=== PATIENT | female | born 1990 | race Caucasian/White ===

== ENCOUNTER 2017-10-26 18:11 | Emergency (ER) | payer MEDICAID ==
[2017-10-26] MEDS ORDERED: KETOROLAC TROMETHAMINE INJ/PF 30 MG/1 ML SDV IV ONE (20:10)
--- NOTE | 2017-10-26 20:13 | ER Document Report ---
ED Oral Problem - General Chief Complaint: Pain Stated Complaint: TOOTH ACHE Time Seen by Provider: 10/26/17 19:05 Mode of Arrival: Ambulatory Information source: Patient TRAVEL OUTSIDE OF THE [place] IN LAST 30 DAYS: No - HPI Patient complains to provider of: Toothache Severity: Moderate Notes: The patient is here with complaints of right lower dental pain as well as neck pain. Patient states that she was seen by her dentist approximately 5 days ago and was told she had a small dental abscess. She was placed on clindamycin. She states that her pain is progressively getting worse. She now has pain from her right ear down to the right side of her neck. Pain is worse with movement and chewing. She denies fevers. She denies nausea, vomiting, diarrhea. No difficulty breathing or swallowing. No chest pain or shortness of breath. She denies any neck stiffness. No rash. She has no other complaints at this time. - Related Data Allergies/Adverse Reactions: Penicillins Allergy (Mild, Verified 10/26/17 18:12) Hives Past Medical History - Social History Smoking Status: Unknown if Ever Smoked Family History: Reviewed & Not Pertinent. denies: CAD Patient has suicidal ideation: No Patient has homicidal ideation: No Renal/ Medical History: Denies: Hx Peritoneal Dialysis Psychiatric Medical History: Reports: Hx Anxiety - Immunizations Hx Diphtheria, Pertussis, Tetanus Vaccination: No Review of Systems - Review of Systems -: Yes All other systems reviewed and negative Physical Exam - Vital signs Vitals: Temp Pulse Resp BP Pulse Ox 98.7 F 91 16 145/88 H 100 10/26/17 18:16 10/26/17 18:16 10/26/17 18:16 10/26/17 18:16 10/26/17 18:16 - Notes Notes: GENERAL: alert, cooperative, nontoxic, no distress. HEAD: normocephalic, atraumatic EYES: conjunctiva pink without discharge, no external redness or swelling. EARS: no external swelling, no external redness. Ear canals are clear with no swelling. TMs pearly gordon bilaterally with no perforation or erythema. Mastoid with no tenderness or erythema. NOSE: atraumatic, no external swelling MOUTH/THROAT: mucous membranes moist and pink. No obvious dental abscess noted. No swelling. No sublingual swelling or induration. No sign of Ravi' s angina. NECK: soft, supple, full range of motion, no meningismus. Tenderness to palpation of the right jaw, submandibular area and right lateral neck. No swelling identified. CHEST: no distress, lungs clear and equal throughout. No wheezing, rales, rhonchi. CARDIAC: regular rate and rhythm, no murmur, normal capillary refill, normal pulses. BACK: full range of motion, no CVA tenderness. EXTREMITIES: full range of motion of all extremities. No redness, no swelling. NEURO: alert and oriented 3, no focal deficits, full range of motion of all extremities. PYSCH: appropriate mood, affect. Patient is cooperative. SKIN: pink, warm, dry, no rash. Course - Re-evaluation Re-evalutation: 10/26/17 21:20 The patient is nontoxic appearing stable vitals. She is here with complaints of right jaw pain. She was seen by her dentist a few days ago was placed on clindamycin but continues to have worsening pain. No swelling. No difficulty breathing or swallowing. She is a benign exam. She has no sign of Ravi's angina. She is afebrile. Ear and throat exam are unremarkable. Lab work is all unremarkable. CT of the soft tissues of the neck show no acute abnormalities. The patient will be discharged home with instructions to continue taking her clindamycin. Continue taking ibuprofen 800 mg every 8 hours. I will prescribe her some stronger pain medication she can take and that she can get in to see her dentist to see if they can figure out why she is having worsening pain. She is instructed to follow-up sooner if she develops worsening pain, high fever, difficulty breathing or swallowing, significant facial swelling, or for any further concerns. The patient's emergency department workup and current diagnosis were explained to the patient and or family. Follow-up instructions were provided. Medications if prescribed were discussed. Instructions for when to return to the emergency department including specific worrisome symptoms were discussed with the patient and/or family. The patient is noted to have elevated blood pressure during today's emergency department visit. The patient was informed of this finding. The patient was instructed that this may be related to pre-hypertension and requires further evaluation with a primary care provider. The patient has no hypertensive symptoms at this time. - Vital Signs Vital signs: Temp Pulse Resp BP Pulse Ox 98.7 F 91 16 145/88 H 100 10/26/17 18:16 10/26/17 18:16 10/26/17 18:16 10/26/17 18:16 10/26/17 18:16 - Laboratory Result Diagrams: 10/26/17 20:24 10/26/17 20:24 - Diagnostic Test Radiology reviewed: Image reviewed, Reports reviewed - Soft tissue neck with IV contrast shows no acute abnormality. Discharge - Discharge Clinical Impression: Pain in lower jaw Condition: Stable Disposition: HOME, SELF-CARE Instructions: Dentist, Dental Infection or Abscess ([facility]) Additional Instructions: Take medications as prescribed. Continue taking her antibiotics. Take ibuprofen 800 mg every 8 hours as needed for pain. Follow-up with your dentist at the next available appointment for recheck. Follow-up sooner for worsening pain, high fever, significant swelling, difficulty breathing or swallowing, or for any further concerns. Your blood pressure was elevated during today's visit. Have this rechecked with your doctor. The medication you were prescribed today may cause drowsiness. Do not drive or operate heavy machinery while taking this medication. Prescriptions: Hydrocodone/Acetaminophen [[place] 5-325 mg Tablet] 2 tab PO Q6H PRN #15 tab PRN Reason: Forms: Elevated Blood Pressure, Smoking Cessation Education Referrals: CHARLES ALEX DO [Primary Care Provider] - Follow up as needed
[2017-10-26 20:36] LABS: ABSOLUTE EOSINOPHILS # (AUTO) 0.2 10^3/uL (0.0-0.6); ABSOLUTE LYMPHOCYTES (AUTO) 2.7 10^3/uL (0.5-4.7); ABSOLUTE MONOCYTES (AUTO) 0.7 10^3/uL (0.1-1.4); ABSOLUTE NEUT (AUTO) 5.8 10^3/uL (1.7-8.2); BASOPHILS % (AUTO) 0.5 % (0-2); EOSINOPHILS % (AUTO) 1.7 % (0-6); HEMATOCRIT 42.6 % (36.0-47.0); HEMOGLOBIN 14.5 g/dL (12.0-15.5); LYMPHOCYTES % (AUTO) 28.4 % (13-45); MEAN CORPUSCULAR HEMOGLOBIN 28.8 pg (27.0-33.4); MEAN CORPUSCULAR VOLUME 85 fl (80-97); MONOCYTES % (AUTO) 7.5 % (3-13); PLATELET COUNT 306 10^3/uL (150-450); RED BLOOD COUNT 5.02 10^6/uL (3.72-5.28); RED CELL DISTRIBUTION WIDTH 13.1 % (11.5-14.0); SEGMENTED NEUTROPHILS % (AUTO) 61.9 % (42-78); TOTAL CELLS COUNTED % (AUTO) 100 %; WHITE BLOOD COUNT 9.4 10^3/uL (4.0-10.5)
[2017-10-26 20:51] LABS: ALANINE AMINOTRANSFERASE 33 U/L (9-52); ALBUMIN 4.5 g/dL (3.5-5.0); ALKALINE PHOSPHATASE 47 U/L (38-126); ANION GAP 9 (5-19); ASPARTATE AMINO TRANSFERASE 18 U/L (14-36); BILIRUBIN,DIRECT 0.3 mg/dL (0.0-0.4); BILIRUBIN,TOTAL 0.6 mg/dL (0.2-1.3); BLOOD UREA NITROGEN 11 mg/dL (7-20); CALCIUM 9.8 mg/dL (8.4-10.2); CARBON DIOXIDE 25 mmol/L (22-30); CHLORIDE 107 mmol/L (98-107); GLUCOSE 85 mg/dL (75-110); POTASSIUM 4.4 mmol/L (3.6-5.0); TOTAL PROTEIN 7.4 g/dL (6.3-8.2)
--- NOTE | 2017-10-26 20:56 | RADIOLOGY REPORT (SQ) ---
EXAM DESCRIPTION: CT SOFT TISSUE NECK WITH COMPLETED DATE/TIME: 10/26/2017 8:40 pm REASON FOR STUDY: RIGHT LOWER DENTAL ABSCESS, PAIN GETTING WORSE COMPARISON: None. TECHNIQUE: Post IV contrasted scanning from skull base through lung apices with review of bone, soft tissue and lung windows. Reconstructed coronal and sagittal MPR images reviewed. All images stored on PACS. All CT scanners at this facility use dose modulation, iterative reconstruction, and/or weight based d osing when appropriate to reduce radiation dose to as low as reasonably achievable (ALARA). [facility]: Dose Right [facility]: CareDose [facility]: Dose Right [facility]: Teradose 4D [facility]: [employer] CONTRAST TYPE AND DOSE: contrast/concentration: Isovue 370.00 mg/ml; Total Contrast Delivered: 75.0 ml; Total Saline Delivered: 55.0 ml RENAL FUNCTION: None required. The patient is less than 50 years old. RADIATION DOSE: CT Rad equipment meets quality standard of care and radiation dose reduction techniq ues were employed. CTDIvol: 12.4 mGy. DLP: 400 mGy-cm. . LIMITATIONS: None. FINDINGS: SKULL BASE: Intact. MAJOR SALIVARY GLANDS: No solid or cystic masses. No inflammatory changes. LYMPHADENOPATHY: No adenopathy. MUCOSAL MASSES OR ASYMMETRY: No mucosal masses or asymmetry. LARYNX/CORDS: No abnormal findings. VASCULAR STRUCTURES: The major vessels are patent. LUNG APICES: Clear. BONES: Intact. THYROID: Normal size. No masses. PARANASAL SINUSES: Clear. OTHER: No other significant finding. IMPRESSION: NO SIGNIFICANT FINDING IN THE SOFT TISSUES OF THE NECK. NO SIGNIFICANT SOFT TISSUE INFL AMMATION. NO SOFT TISSUE ABSCESS. TECHNICAL DOCUMENTATION: JOB ID: [id number] Quality ID # [id number]: Final reports with documentation of one or more dose reduction techniques (e.g., Au tomated exposure control, adjustment of the mA and/or kV according to patient size, use of iterative reconstruction technique) 2010 [employer]- All Rights Reserved Reading location - IP/workstation name: [email or web address]
[2017-10-26 21:29] VITALS: BP 117/73
== END 2017-10-26 21:25 | disposition home or self-care (01) ==
LOC: ER 18:11
DX: R68.84 Jaw pain (principal); K08.89 Other specified disorders of teeth and supporting structures; M54.2 Cervicalgia; H92.01 Otalgia, right ear; R03.0 Elevated blood-pressure reading, without diagnosis of hypertension
CPT/HCPCS: 99283; 96374; 36415; 85025; 80053; 70491; J1885

== ENCOUNTER 2019-08-17 10:43 | Emergency (ER) | payer SELFPAY ==
[2019-08-17 11:38] VITALS: BP 129/75
[2019-08-17] MEDS ORDERED: IBUPROFEN 600 MG TABLET PO ONE (12:03)
[2019-08-17] MEDS ORDERED: DEXAMETHASONE SOD PHOS INJ 10 MG/1 ML VIAL IM ONE (12:03)
--- NOTE | 2019-08-17 12:05 | ER Document Report ---
HPI - HPI Time Seen by Provider: 08/17/19 11:57 Pain Level: 2 Context: 29-year-old healthy female presents the emergency department with chief complaint of sore throat and bilateral ear pain for 2 days. Patient came down with flulike symptoms a couple weeks ago that started as headache, body aches, cough but symptoms got acutely worse last 2 days with a sore throat and ear pain. No fever or chills, no nausea or vomiting, no cough, does complain of anterior neck pain. - CONSTITUTIONAL Constitutional: REPORTS: Fever, Chills - EENT EENT: REPORTS: Sore Throat - x 2 day, Ear Pain - bilateral. DENIES: Eye problems - CARDIOVASCULAR Cardiovascular: DENIES: Chest pain - RESPIRATORY Respiratory: DENIES: Trouble Breathing, Coughing - GASTROINTESTINAL Gastrointestinal: DENIES: Abdominal Pain, Black / Bloody Stools - REPRODUCTIVE LMP: 08/03/19 Reproductive: DENIES: : Past Medical History - Social History Smoking Status: Former Smoker Chew tobacco use (# tins/day): No Frequency of alcohol use: None Drug Abuse: None Family History: Reviewed & Not Pertinent. denies: CAD Patient has suicidal ideation: No Patient has homicidal ideation: No Renal/ Medical History: Denies: Hx Peritoneal Dialysis Psychiatric Medical History: Reports: Hx Anxiety - Immunizations Hx Diphtheria, Pertussis, Tetanus Vaccination: No Vertical Provider Document - CONSTITUTIONAL Notes: PHYSICAL EXAMINATION: Reviewed vital signs and charting by RN GENERAL: Alert, interacts well. No acute distress. HEAD: Normocephalic, atraumatic. EYES: Pupils equal and round. Extraocular movements intact. ENT: Oral mucosa moist, tongue midline. Uvula midline, 2+ bilateral tonsillar hypertrophy with erythema and no exudate NECK: Full range of motion. Trachea midline. Bilateral anterior cervical lymphadenopathy, bilateral submandibular lymphadenopathy LUNGS: Clear to auscultation bilaterally, no wheezes, rales, or rhonchi. No respiratory distress. HEART: Regular rate and rhythm. No murmur ABDOMEN: soft, non-tender. No distention. Bowel sounds present EXTREMITIES: Moves all 4 extremities spontaneously. No edema, No cyanosis. PSYCH: Normal affect, normal mood. SKIN: Warm, dry, normal turgor. No rashes or lesions noted. - INFECTION CONTROL TRAVEL OUTSIDE OF THE [place] IN LAST 30 DAYS: No Course - Re-evaluation Re-evalutation: 08/17/19 12:47 Presentation of several days of sore throat in an otherwise well-appearing patient. Rapid strep is positive. History and exam are not consistent with a retropharyngeal abscess or peritonsillar abscess. Airway is patent. No difficulty handling oral secretions. Vitals within normal limits. Patient has been treated with an IM dose of penicillin. At this time will discharge with return precautions and follow-up recommendations. Verbal discharge instructions given a the bedside and opportunity for questions given. Medication warnings reviewed. Patient is in agreement with this plan and has verbalized understanding of return precautions and the need for primary care follow-up in the next 7 days. - Vital Signs Vital signs: Temp Pulse Resp BP Pulse Ox 98.8 F 90 18 129/75 H 08/17/19 11:37 08/17/19 12:00 08/17/19 11:37 08/17/19 11:37 Discharge - Discharge Clinical Impression: Streptococcal pharyngitis Condition: Good Disposition: HOME, SELF-CARE Additional Instructions: You have been diagnosed with strep throat based on a positive strep test. You have been treated with a dose of azithromycin here in the emergency department and have been given a prescription for 4 additional days. Please take the a azithromycin 500 mg tablet once daily for the next 4 days. You have also been given a dose of steroids to help with your throat discomfort. Please continue to take ibuprofen 600 mg every 6 hours or Tylenol 1000 mg every 6 hours as needed for throat discomfort. You can also gargle with salt water. Continue to drink plenty of fluids. Follow-up with your primary care doctor in the next several days. Return if you become unable to swallow, have difficulty breathing, pass out, have persistent vomiting that prevents you from being able to tolerate fluids, or have any other symptoms that are concerning to you. Prescriptions: Azithromycin 500 mg PO DAILY 4 Days #4 tablet Forms: Return to Work
[2019-08-17] MEDS ORDERED: AZITHROMYCIN 250 MG TABLET PO ONE (12:46)
== END 2019-08-17 12:55 | disposition home or self-care (01) ==
LOC: ER 10:43
DX: J02.0 Streptococcal pharyngitis (principal); H92.03 Otalgia, bilateral; R51 Headache; M79.10 Myalgia, unspecified site; R05 Cough; Z87.891 Personal history of nicotine dependence
CPT/HCPCS: 99283; 96372; 87880; J1100